=== PATIENT | female | born 1995 | race Caucasian/White ===

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

== ENCOUNTER 2017-03-08 22:55 | Emergency (ER) | payer OTHER ==
[2017-03-08] MEDS ORDERED: Sodium Chloride 0.9% 1,000 ML IV ONE (23:10)
[2017-03-08] MEDS ORDERED: Ondansetron 4 MG/2 ML SDV IVPUSH ONE (23:10)
[2017-03-08] MEDS ORDERED: Pantoprazole 40 MG Vial IVPUSH ONE (23:10)
--- NOTE | 2017-03-08 23:12 | EDM.PDOC ---
ED HPI GENERAL MEDICAL PROBLEM - General Chief Complaint: Gastrointestinal Problem Stated Complaint: FEVER/VOMITING Time Seen by Provider: 03/08/17 23:11 Source of Information: Reports: Patient - History of Present Illness INITIAL COMMENTS - FREE TEXT/NARRATIVE: HISTORY AND PHYSICAL: History of present illness: []Patient has had fever at home measured at the 100.8 on the home equipment she has also had multiple episodes of vomiting throughout the day, symptoms have been present for 12 hours she does complain of some mild body ache She denies ear pain sore throat or cough no abdominal pain no diarrhea constipation chest pain shortness of breath headache dizziness or palpitation no bowel or urine symptoms Patient has IUD in place Review of systems: As per history of present illness and below otherwise all systems reviewed and negative. Past medical history: As per history of present illness and as reviewed below otherwise noncontributory. Surgical history: As per history of present illness and as reviewed below otherwise noncontributory. Social history: No reported history of drug or alcohol abuse. Family history: As per history of present illness and as reviewed below otherwise noncontributory. Gen. no acute distress, does not appear acutely ill Physical exam: HEENT: Atraumatic, normocephalic, pupils reactive, negative for conjunctival pallor or scleral icterus, mucous membranes moist, throat clear, neck supple, nontender, trachea midline. Tympanic membranes clear, sinuses nontender Lungs: Clear to auscultation, breath sounds equal bilaterally, chest nontender. Heart: S1S2, regular, negative for clicks, rubs, or JVD. Abdomen: Soft, nondistended, nontender. Negative for masses or hepatosplenomegaly. Negative for costovertebral tenderness. Pelvis: Stable nontender. Genitourinary: Deferred. Rectal: Deferred. Extremities: Atraumatic, negative for cords or calf pain. Neurovascular unremarkable. Neuro: Awake, alert, oriented. Cranial nerves II through XII unremarkable. Cerebellum unremarkable. Motor and sensory unremarkable throughout. Exam nonfocal. Diagnostics: []CBC CMP amylase lipase UA hCG Therapeutics: []1 L normal saline bolus Zofran 8 mg IV Proton X 80 mg IV Impression: []Fever by history Vomiting Definitive disposition and diagnosis as appropriate pending reevaluation and review of above. - Related Data Allergies Allergy/AdvReac Type Severity Reaction Status Date / Time amoxicillin [From Augmentin] Allergy Airway Verified 03/08/17 23:09 Tightness clavulanic acid Allergy Airway Verified 03/08/17 23:09 [From Augmentin] Tightness Home Meds: Home Meds Control 11/19/16 [History] Past Medical History - Past Health History Medical/Surgical History: Denies Medical/Surgical History - Infectious Disease History Infectious Disease History: Reports: None - Past Surgical History HEENT Surgical History: Reports: Eye Surgery Social & Family History - Family History Family Medical History: Noncontributory - Tobacco Use Smoking Status *Q: Never Smoker Second Hand Smoke Exposure: No - Caffeine Use Caffeine Use: Reports: Coffee, Energy Drinks Caffeine Use Comment: 2 drinks/day - Recreational Drug Use Recreational Drug Use: No - Sexual History Sexual History: Reports: Barrier Contraceptives, Other (See Below) ED ROS GENERAL - Review of Systems Review Of Systems: ROS reveals no pertinent complaints other than HPI. ED EXAM, GENERAL - Physical Exam Exam: See Below Course - Vital Signs Last Recorded V/S: Last Vital Signs Temp 36.8 C 03/08/17 22:58 Pulse 131 H 03/08/17 22:58 Resp 16 03/08/17 22:58 BP 133/70 03/08/17 22:58 Pulse Ox 96 03/08/17 22:58 - Orders/Labs/Meds Orders: Active Orders 24 hr Category Date Time Status Chest 2V [CR] Stat Exams 03/08/17 23:12 Taken CULTURE BLOOD [BC] Stat Lab 03/08/17 23:25 Received CULTURE BLOOD [BC] Stat Lab 03/08/17 23:31 Received CULTURE URINE [RM] Stat Lab 03/08/17 23:05 Received Sodium Chloride 0.9% [Normal Saline] 1,000 ml Med 03/08/17 23:10 Active IV STAT Blood Culture x2 Reflex Set [OM.PC] Stat Oth 03/08/17 23:12 Ordered Medication Orders Sodium Chloride (Normal Saline) 1,000 mls @ 999 mls/hr IV STAT ONE Stop: 03/09/17 00:10 Last Admin: 03/08/17 23:30 Dose: 999 mls/hr Labs: Laboratory Tests 03/08/17 03/08/17 03/08/17 Range/Units 23:05 23:05 23:10 WBC 11.65 H (4.0-11.0) K/uL RBC 5.53 (4.30-5.90) M/uL Hgb 13.2 (12.0-16.0) g/dL Hct 41.4 (36.0-46.0) % MCV 74.9 L (80.0-98.0) fL MCH 23.9 L (27.0-32.0) pg MCHC 31.9 (31.0-37.0) g/dL RDW Std Deviation 42.8 (28.0-62.0) fl RDW Coeff of Brenda 16 H (11.0-15.0) % Plt Count 265 (150-400) K/uL MPV 10.50 (7.40-12.00) fL Neut % (Auto) 83.4 H (48.0-80.0) % Lymph % (Auto) 10.4 L (16.0-40.0) % [place] % (Auto) 5.6 (0.0-15.0) % Eos % (Auto) 0.4 (0.0-7.0) % Baso % (Auto) 0.2 (0.0-1.5) % Neut # (Auto) 9.7 H (1.4-5.7) K/uL Lymph # (Auto) 1.2 (0.6-2.4) K/uL [place] # (Auto) 0.7 (0.0-0.8) K/uL Eos # (Auto) 0.1 (0.0-0.7) K/uL Baso # (Auto) 0.0 (0.0-0.1) K/uL Nucleated RBC % 0.0 /100WBC Nucleated RBCs # 0 K/uL Sodium (136-146) mmol/L Potassium (3.5-5.1) mmol/L Chloride (98-110) mmol/L Carbon Dioxide (21-31) mmol/L BUN (6.0-23.0) mg/dL Creatinine (0.6-1.5) mg/dL Est Cr Clr Drug Dosing mL/min Estimated GFR (MDRD) ml/min Glucose (60-110) mg/dL Calcium (8.8-10.8) mg/dL Total Bilirubin (0.1-1.5) mg/dL AST (5-40) IU/L ALT (8-54) IU/L Alkaline Phosphatase (40-150) Total Protein (6.0-8.0) g/dL Albumin (3.5-5.0) g/dL Globulin (2.0-3.5) g/dL Albumin/Globulin Ratio (1.3-2.8) Amylase (10-90) U/L Lipase (7-80) U/L Urine Color YELLOW Urine Appearance CLEAR Urine pH 7.0 (5.0-8.0) Ur Specific [place] 1.015 (1.001-1.035) Urine Protein NEGATIVE (NEGATIVE) mg/dL Urine Glucose (UA) NEGATIVE (NEGATIVE) mg/dL Urine Ketones 40 H (NEGATIVE) mg/dL Urine Occult Blood NEGATIVE (NEGATIVE) Urine Nitrite NEGATIVE (NEGATIVE) Urine Bilirubin NEGATIVE (NEGATIVE) Urine Urobilinogen 0.2 (<2.0) EU/dL Ur Leukocyte Esterase NEGATIVE (NEGATIVE) Urine RBC 0-2 (0-2/HPF) Urine WBC 0-2 (0-5/HPF) Ur Epithelial Cells OCCASIONAL (NONE-FEW) Urine Bacteria FEW (NEGATIVE) Urine HCG, Qual NEGATIVE (NEGATIVE) 03/08/17 Range/Units 23:10 WBC (4.0-11.0) K/uL RBC (4.30-5.90) M/uL Hgb (12.0-16.0) g/dL Hct (36.0-46.0) % MCV (80.0-98.0) fL MCH (27.0-32.0) pg MCHC (31.0-37.0) g/dL RDW Std Deviation (28.0-62.0) fl RDW Coeff of Brenda (11.0-15.0) % Plt Count (150-400) K/uL MPV (7.40-12.00) fL Neut % (Auto) (48.0-80.0) % Lymph % (Auto) (16.0-40.0) % [place] % (Auto) (0.0-15.0) % Eos % (Auto) (0.0-7.0) % Baso % (Auto) (0.0-1.5) % Neut # (Auto) (1.4-5.7) K/uL Lymph # (Auto) (0.6-2.4) K/uL [place] # (Auto) (0.0-0.8) K/uL Eos # (Auto) (0.0-0.7) K/uL Baso # (Auto) (0.0-0.1) K/uL Nucleated RBC % /100WBC Nucleated RBCs # K/uL Sodium 138 (136-146) mmol/L Potassium 3.5 (3.5-5.1) mmol/L Chloride 103 (98-110) mmol/L Carbon Dioxide 25 (21-31) mmol/L BUN 8 (6.0-23.0) mg/dL Creatinine 0.8 (0.6-1.5) mg/dL Est Cr Clr Drug Dosing 89.46 mL/min Estimated GFR (MDRD) > 60.0 ml/min Glucose 93 (60-110) mg/dL Calcium 9.2 (8.8-10.8) mg/dL Total Bilirubin 0.9 (0.1-1.5) mg/dL AST 19 (5-40) IU/L ALT 12 (8-54) IU/L Alkaline Phosphatase 94 (40-150) Total Protein 7.2 (6.0-8.0) g/dL Albumin 4.4 (3.5-5.0) g/dL Globulin 2.8 (2.0-3.5) g/dL Albumin/Globulin Ratio 1.6 (1.3-2.8) Amylase 73 (10-90) U/L Lipase 39 (7-80) U/L Urine Color Urine Appearance Urine pH (5.0-8.0) Ur Specific [place] (1.001-1.035) Urine Protein (NEGATIVE) mg/dL Urine Glucose (UA) (NEGATIVE) mg/dL Urine Ketones (NEGATIVE) mg/dL Urine Occult Blood (NEGATIVE) Urine Nitrite (NEGATIVE) Urine Bilirubin (NEGATIVE) Urine Urobilinogen (<2.0) EU/dL Ur Leukocyte Esterase (NEGATIVE) Urine RBC (0-2/HPF) Urine WBC (0-5/HPF) Ur Epithelial Cells (NONE-FEW) Urine Bacteria (NEGATIVE) Urine HCG, Qual (NEGATIVE) Meds: Medications Generic Name Dose Route Start Last Admin Trade Name Freq PRN Reason Stop Dose Admin Sodium Chloride 1,000 mls @ 999 mls/hr 03/08/17 23:10 03/08/17 23:30 Normal Saline IV 07/22/17 00:10 999 mls/hr STAT ONE Administration Discontinued Medications Generic Name Dose Route Start Last Admin Trade Name Neeraj CORONADON Reason Stop Dose Admin Ondansetron HCl 8 mg 03/08/17 23:10 03/08/17 23:29 Zofran IVPUSH 03/08/17 23:11 8 mg ONETIME ONE Administration Pantoprazole Sodium 80 mg 03/08/17 23:10 03/08/17 23:31 Protonix Iv IVPUSH 03/08/17 23:11 80 mg .BOLUS ONE Administration Departure - Departure Time of Disposition: 23:57 Disposition: Home, Self-Care 01 Condition: Good Clinical Impression: Vomiting, Viral syndrome - Discharge Information Referrals: PCP,None [Primary Care Provider] - Forms: ED Department Discharge Additional Instructions: Hydration techniques as discussed Return if symptoms persist or worsen or new concerning symptoms develop Follow-up with primary care in 2 weeks [facility] [address] [place] [id number] The following information is given to patients seen in the emergency department who are being discharged to home. This information is to outline your options for follow-up care. We provide all patients seen in our emergency department with a follow-up referral. The need for follow-up, as well as the timing and circumstances, are variable depending upon the specifics of your emergency department visit. If you don't have a primary care physician on staff, we will provide you with a referral. We always advise you to contact your personal physician following an emergency department visit to inform them of the circumstance of the visit and for follow-up with them and/or the need for any referrals to a consulting specialist. The emergency department will also refer you to a specialist when appropriate. This referral assures that you have the opportunity for follow-up care with a specialist. All of these measure are taken in an effort to provide you with optimal care, which includes your follow-up. Under all circumstances we always encourage you to contact your private physician who remains a resource for coordinating your care. When calling for follow-up care, please make the office aware that this follow-up is from your recent emergency room visit. If for any reason you are refused follow-up, please contact the [facility] emergency department at and asked to speak to the emergency department charge nurse. - My Orders Last 24 Hours: My Active Orders 03/08/17 23:05 CULTURE URINE [RM] Stat 03/08/17 23:10 Sodium Chloride 0.9% [Normal Saline] 1,000 ml IV STAT 03/08/17 23:12 Chest 2V [CR] Stat Blood Culture x2 Reflex Set [OM.PC] Stat 03/08/17 23:25 CULTURE BLOOD [BC] Stat 03/08/17 23:31 CULTURE BLOOD [BC] Stat - Assessment/Plan Last 24 Hours: My Active Orders 03/08/17 23:05 CULTURE URINE [RM] Stat 03/08/17 23:10 Sodium Chloride 0.9% [Normal Saline] 1,000 ml IV STAT 03/08/17 23:12 Chest 2V [CR] Stat Blood Culture x2 Reflex Set [OM.PC] Stat 03/08/17 23:25 CULTURE BLOOD [BC] Stat 03/08/17 23:31 CULTURE BLOOD [BC] Stat
[2017-03-08 23:41] LABS: CHLORIDE,CL 103 mmol/L (98-110); SODIUM,NA 138 mmol/L (136-146)
[2017-03-09 00:19] VITALS: BP 108/55
--- NOTE | 2017-03-11 11:56 | CR ---
EXAM DATE: 03/08/17 PATIENT'S AGE: 21 Patient: SULLY PALACIOS Facility: [place], [place] Site . Site : 1995 Study: XRay Chest [id number]/21/2017 11:49:24 PM Ordering Physician: Yu Hernadez Final Report: INDICATION: Nausea and vomiting TECHNIQUE: Chest 2 views. COMPARISON: June 14, 2016 FINDINGS: Cardiovascular and mediastinum: Heart size and vasculature are normal in caliber and appearance. Mediastinum is within normal limits. Lungs and pleural spaces: Lungs are clear. No sign of infiltrate or mass. No sign of pleural effusion. No pneumothorax. Bones and soft tissues: No significant findings. IMPRESSION: No sign of acute disease. Dictated by Marianna Craig MD @ Mar 08 2017 11:52PM (Electronic Signature) Report Signed by Proxy. [facility] MEDICAL CENTERParamjit
== END 2017-03-09 00:30 | disposition home or self-care (01) ==
LOC: MW.ED 22:55
DX: B34.9 Viral infection, unspecified (principal); Z88.1 Allergy status to other antibiotic agents
CPT/HCPCS: 71020; 80053; 81001; 81025; 82150; 83690; 85025; 87040; 87086; 96361; 96374; 96375; 99284; C9113; J2405; J7040